=== PATIENT | male | born 1990 | race Caucasian/White ===

== ENCOUNTER 2016-06-25 09:33 | Emergency (ER) | payer OTHER ==
[2016-06-25 09:39] VITALS: BP 129/79
--- NOTE | 2016-06-25 09:59 | ERNOTE ---
[facility] Date of Service: 06/25/16 Presenting Symptoms: other - earache Time Seen by Provider: 06/25/16 09:45 Source: patient Exam Limitations: no limitations - Immun/Allergies/Home Medications Immunizations: IMMUNIZATION HX Immunizations Up to Date Yes History of Influenza Vaccine No Hx Pneumococcal Vaccination No Allergies/Adverse Reactions: Allergies Allergy/AdvReac Type Severity Reaction Status Date / Time No Known Allergies Allergy Verified 06/25/16 09:39 Home Medications: HOME MEDICATIONS Betamethasone Dipropionate 1 appl TP BID #15 gm 03/26/16 [Last Taken Unknown] Amox Tr/Potassium Clavulanate [Augmentin 875-125 Tablet] 875 mg PO Q12H #20 tab 06/25/16 [Last Taken Unknown] Naproxen [Naprosyn] 500 mg PO BID PRN #10 tablet 06/25/16 [Last Taken Unknown] - History of Present Illness Narrative: Patient presents to the ED for right ear pain. He relates he has been sick a couple of days ago with URI Sx. That had improved but he woke up this morning with pain right ear and a plugged feeling in the right ear. No trouble breathing or swallowing. No fever. Nothing makes it better or worse. No other pain. No CP or SOB. No trauma. Severity: Present: other - pain can be severe in the right ear. ENT Location: Present: ear (R) Prearrival Treatment: Present: no prearrival treatment Modifying Factors - Improves: Reports: nothing Modifying Factors - Worsens: Reports: nothing Associated Symptoms - ENT: Denies: fever, trauma Prior Treament: Denies: recently seen Review of Systems - Review of Systems Constitutional: Absent: fever ENT: Present: no symptoms reported, ear pain Respiratory: Absent: shortness of breath Cardiology: Absent: chest pain Gastrointestinal/Abdominal: Absent: abdominal pain Musculoskeletal: Present: other - chronic psoriasis - Patient's Past Medical History Patient History - Medical: No pertinent hx Patient History - Cardiac/Respiratory: No pertinent hx Patient History - Cancer: No Hx of Cancer Patient History - Surgical Procedures: No surgical history Patient History - Other: None - Social History Living Situations: home Abuse History: No History of abuse Psych History: No pertinent hx Alcohol Use: none Drug Use: none - Immunizations Immunizations Up to Date: Yes Hx Pneumococcal Vaccination: No History of Influenza Vaccine: No Physical Exam - Physical Exam General Appearance: Present: alert, no apparent distress Eye Exam: Normal inspection: bilateral, PERRL: bilateral Ears, Nose, Throat: Present: abnormal TM (R), normal pharynx, other - Left TM wnl. Right TM erythema with fluid behind TM. No mastoiditis.\. 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 Vital Signs: Vital Signs 06/25/16 09:36 Temperature 36.0 C L Pulse Rate 95 Respiratory 12 Rate Blood Pressure 129/79 O2 Sat by Pulse 97 Oximetry - Progress/Reassessment Chief Complaint: Earache Progress Note-Subjective: 06/25/16 09:54 Right OM without complication. I discussed warning signs and reasons to return as well as the need for close f/u. no evidence of OE or malignant OE. 06/25/16 09:55 Departure Clinical Impression: Right otitis media - Departure Disposition: Home self-care Condition: Stable Instructions: Otitis Media, Adult, [id number] Additional Instructions: Rest. Fluids. Medications as directed. Follow-up with your doctor in 3 days for re-check. Return for fever, drainage or if your condition worsens or changes in any way. Prescriptions: Amox Tr/Potassium Clavulanate [Augmentin 875-125 Tablet] 875 mg PO Q12H #20 tab Naproxen [Naprosyn] 500 mg PO BID PRN #10 tablet PRN Reason: Pain
--- OUTSIDE RECORDS SUMMARY | 2016-06-25 10:01 | XMS REPORT | Continuity of Care Document ---
:1990 Demographics Address [address] [place] [address] Home Phone [phone] Preferred Language Unknown Marital Status Unknown Jainism Affiliation Unknown Race Unknown Ethnic Group Unknown Author Organization [employer] [place] [address] Care Team Providers Name Role Phone Unavailable Primary Care Provider Unavailable Source Comments This disclosure is being made pursuant to the [employer] program and maynot contain all information available regarding this patient.[employer] Active Allergies and Adverse Reactions Not on File Current Medications Be aware that medications may not be up to date as of this document. Alwaysverify current medications with the patient. Not on file Active Problems Not on file Social History Tobacco Use Types Packs/Day Years Used Date Never Assessed Plan of Care Health Maintenance Due Date Last Done Comments HPV Vaccine (9-26YO) (1 of 3 - Male 3 Dose Series) 2001 Retired-Pertussis Vaccine Adult 2009 Retired-Tetanus Vaccine Adult 2009 Retired-INFLUENZA VACCINE 01/13/2015 Results from Last 3 Months Not on file
--- OUTSIDE RECORDS SUMMARY | 2016-06-25 10:01 | XMS REPORT | Continuity of Care Document ---
:1990 Demographics Phone Unavailable Preferred Language Unknown Marital Status Unknown Hindu Affiliation Unknown Race Unknown Ethnic Group Unknown Author Organization [facility] ([facility]) [place] [address] Phone [phone] Care Team Providers Name Role Phone Unavailable Primary Care Provider Unavailable Source Comments This disclosure is being made pursuant to the Care Everywhere program, applicable federal and state laws, and may not contain all informaitonavailable regarding this patient.[facility] ([facility]) Active Allergies and Adverse Reactions Not on File Current Medications Not on file Active Problems Not on file Most Recent Encounters Date Type Specialty Providers Description 05/27/2016 Lab Requisition Pathology [facility] Dx: Dermatitis Social History Tobacco Use Types Packs/Day Years Used Date Never Assessed Plan of Care Health Maintenance Due Date Last Done Comments Hepatitis B Vaccine (1 of 3 - Primary Series) 1990 HPV Vaccine (1 of 3 - Male 3 Dose Series) 2001 Tdap Vaccine 2001 Lipid Disorder Screening 2008 MMR Vaccine 2008 Td Vaccine 2008 Varicella Vaccine (1 of 2 - Adult - No Evidence of 2008 Immunity) Influenza Vaccine: Seasonal (#1) 12/14/2015 Results from Last 3 Months DERMATOPATHOLOGY EXAM (05/25/2016 9:00 AM) Component Value Range Case Report Surgical Pathology Case: [id number] Authorizing Provider:[facility] Collected: 05/25/2016 09:00 AM Pathologist: Sylvia Michel MD Received: 05/27/2016 10:27 AM Specimen:Skin, other, specify, R forearm Diagnosis Skin, right forearm, punch biopsy: Psoriasiform and spongiotic dermatitis consistent with psoriasis with features of lichen simplex chronicus I have personally reviewed this case and edited the report as necessary. Clinical Information Tissue source/site: [id number] forearm. Pertinent clinical history and findings: 4 mm psoriasiform plaques with micaceous scale. Clinical differential diagnosis: Psoriasis versus eczema. Gross Description A.Received in formalin, in a container labeled [place], date of , and "R forearm", is a 0.4 cm in diameter x 0.4 cm in length pale zuluaga punch biopsy.The specimen is inked, bisectedand submitted entirely in A1. BNS/tkr Microscopic Description Sections of skin show parakeratosis overyling psoriasiform epidermal hyperplasia with areas spongiosis, accumulations of neutrophils within the stratum corneum, and areas of hypogranulosis and hypergr anulosis.There is underlying chronic perivascular inflammation with eosinophils.PAS stain negative for fungal organisms. Performed by:Pradeep Franco MD, R4/rls Specimen Skin - Skin, other, specify
== END 2016-06-25 10:02 | disposition home or self-care (01) ==
LOC: ER 09:33
DX: H66.91 Otitis media, unspecified, right ear (principal)